=== PATIENT | female | born 1955 | race Caucasian/White ===

== ENCOUNTER 2021-03-08 21:14 | Inpatient (IN) | payer MEDICARE, MEDICAID, SELFPAY ==
[2021-03-08] VITALS (9 sets, daily range): BP systolic 110–139; BP diastolic 81–102; PULSE 17–129; RESP 19–106; TEMP 37.2; O2SAT 94–100; BMI 26.2
--- NOTE | 2021-03-08 21:25 | ED.RN ---
PT ARRIVES VIA [facility]. PT IMMEDIATELY REFUSED CARE, I WANT TO GO TO [place], TELL THEM TO TAKE ME THERE. EMS STATED THAT SHE DID TELL THEM THAT BUT THEY BROUGHT HER HERE D/T THE 12 LEAD IN THE EMS. PT DEMANDED TO BE TAKEN TO [place], REQUESTED TO PHONE TO CALL HER SON TO TAKE HER. PT'S SON REFUSED TO PICK HER UP AND TAKE HER TO [place]. PT AGREES TO BE SEEN AT [facility]. PT APOLOGIZED FOR BEING A PAIN.
--- NOTE | 2021-03-08 21:45 | RAD_ITS ---
EXAM: XR CHEST, 1 VIEW CLINICAL INDICATION: sob TECHNIQUE: Frontal view of the chest. This report was created using [employer] report generation technology. COMPARISON: None. FINDINGS: LUNGS AND PLEURAL SPACES: Diffuse emphysema suggested. Scarring and/or discoid atelectasis involving the lower lungs bilaterally. No pneumothorax. No effusion. HEART: Unremarkable. Cardiac silhouette not enlarged. MEDIASTINUM: Central airways and mediastinal contour are unremarkable. BONES/JOINTS: S-shaped curvature of the spine with multilevel degenerative changes. No unusual lytic or sclerotic lesions of bone. Multiple right rib fracture deformities posterolaterally. SOFT TISSUES: Unremarkable. VASCULATURE: Nonenlarged thoracic aortic arch with atherosclerotic calcifications. RAD/Chest 1 View (Portable) IMPRESSION: No acute cardiopulmonary disease. Electronically Signed: Alpesh Bass MD at 22:44 EST Tel , Service support ,
--- NOTE | 2021-03-08 21:46 | EKG12_ITS ---
Test Reason : DYSRHYTHMIA Blood Pressure : / mmHG Vent. Rate : 095 BPM Atrial Rate : 095 BPM P-R Int : 168 ms QRS Dur : 096 ms QT Int : 336 ms P-R-T Axes : 079 027 063 degrees QTc Int : 422 ms Normal sinus rhythm Normal ECG Confirmed by XENIA LUNA, BETTIE ([id number]), primer expeditor and drier MELANIE SANCHEZ ([id number]) on 03/11/2021 11:47:11 AM Referred By: CROW Confirmed By:BETTIE MICHAELS MD
[2021-03-08] MEDS: Albuterol 2.5 MG/3 ML VIAL.NEB. INHALATION (22:30)
[2021-03-08] MEDS: Ipratropium/Albuterol Sulfate 3 ML AMPUL.NEB INHALATION (22:30)
[2021-03-08 22:39] LABS: Absolute Lymphocyte Count 0.24 X10^3/uL (0.83-4.51); Basophil# 0.02 X10^3/uL; Basophil% 0.3 % (0-1); Eosinophil# 0.08 X10^3/uL; Eosinophils% 1.1 % (0-5); Hematocrit 35.2 % (37-47); Hemoglobin 11.5 g/dL (12.0-15.0); Lymphocyte # 0.24 X10^3/ul (0.83-4.51); Lymphocyte % 3.4 % (19-41); Mean Corp Hgb Conc 32.7 g/dL (32-36); Mean Corpuscular Hgb 30.7 pg (27.0-32.0); Mean Corpuscular Volume 93.9 fL (81-99); Mean Platelet Vol. 8.4 fl (6.2-12.0); Monocyte# 0.69 X10^3/uL; Monocyte% 9.8 % (0-10); NRBC Flagged by Analyzer 0 % (0-5); Neutrophil # 5.97 X10^3/uL (2.7-7.7); POSITIVE DIFFERENTIAL YES; Platelet Count 426 K/mm3 (150-450); RBC Distribution Width CV 12.3 % (11.6-14.6); RBC Distribution Width SD 42.8 fl (35.1-43.9); Red Blood Count 3.75 M/mm3 (4.2-5.4)
[2021-03-08 22:41] LABS: Differential Indicated SCAN CRITERIA MET
[2021-03-08] MEDS: LORazepam 2 MG/ML Syringe 1 MG IV (22:45)
[2021-03-08 22:46] LABS: Anion Gap 4 (5-15); BUN 8 mg/dL (7-18); BUN/Creat Ratio 23.3 RATIO (10-20); Calcium,Total 9.1 mg/dL (8.5-10.1); Chloride 81 mmol/L (98-107); Creatinine, Serum 0.34 mg/dL (0.55-1.02); EST Glomerular Filtration Rate 204 mL/min (>60); Est Glom Filt Rate - Afr Amer 247 mL/min (>60); Estimated Creatinine Clearance 146.25 ml/min; Glucose 104 mg/dL (74-106); Sodium Level 126 mmol/L (136-145)
--- NOTE | 2021-03-08 23:04 | CPS ---
x1 Albuterol given to pt. as well in ER
[2021-03-08 23:05] LABS: Differential Comment SCANNED
[2021-03-08] MEDS: MethylPREDNISolone 125 MG/2 ML Vial IV (23:13)
[2021-03-08 23:31] LABS: Allen Test Positive; Base Excess 19 mmol/L (-2 to +2); Bicarbonate 44.5 mmol/L (22-26); Blood Gas Specimen Type ART; O2 Delivery Device Cannula; PO2 183 mmHG (75-100); SITE R Radial; SO2 99 % (95-99); Total Carbon Dioxide 47 mmol/L; pCO2 83.9 mmHg (35-45); pH 7.33 (7.35-7.45)
[2021-03-08 23:45] LABS: Troponin-I HS 4 pg/mL (3.0-54.0)
[2021-03-08 23:52] LABS: BNP,B-Type NATRIURETIC PEPTIDE 19.3 pg/mL (0-100)
[2021-03-09] VITALS (18 sets, daily range): BP systolic 119–148; BP diastolic 68–99; PULSE 91–125; RESP 12–28; TEMP 36.4–37.1; O2SAT 88–99; BMI 24.5
[2021-03-09] MEDS: Albuterol 2.5 MG/3 ML VIAL.NEB. INHALATION (01:09)
[2021-03-09] MEDS: Ipratropium/Albuterol Sulfate 3 ML AMPUL.NEB INHALATION ×5 (01:09→19:25)
[2021-03-09] MEDS: LORazepam 2 MG/ML Syringe 0.5 MG IV (01:11)
--- NOTE | 2021-03-09 01:47 | HP.PCM.HOS_ITS ---
HPI - General General Date of Admission: 03/09/21 HPI Narrative DEVORA GORMAN, is a 65 F with a significant history of hypertension; former smoker; depression; anxiety and COPD on home oxygen who presents to the emergency department with a 2-week history of progressively worsening shortness of breath. Associated with her symptoms is cough productive for thick sputum. The thickness of her sputum has increased. Patient has wheezes that she thinks is unchanged. Reportedly about a month ago patient was admitted at [facility] for COPD and Covid. On this presentation patient requested that paramedics send her to [facility] but due to the increased work of breathing paramedics told her that she has to come to our hospital. [facility] Medical History Anxiety COPD (chronic obstructive pulmonary disease) Depression Hypertension Hypothyroidism On home oxygen therapy Home Medications albuterol sulfate 2.5 mg INHALATION Q4H PRN 03/08/21 [History Last Taken Unknown] alendronate 70 mg PO SA 03/08/21 [History Last Taken 03/07/21] buspirone 15 mg PO Q6H PRN PRN 03/08/21 [History Last Taken Unknown] citalopram 20 mg PO DAILY 03/08/21 [History Last Taken Unknown] dalfampridine 10 mg PO Q12H 03/08/21 [History Last Taken Unknown] dimethyl fumarate 240 mg PO BID 03/08/21 [History Last Taken Unknown] famotidine 40 mg PO QHS 03/08/21 [History Last Taken Unknown] ferrous sulfate 325 mg PO BID 03/08/21 [History Last Taken Unknown] levothyroxine 100 mcg PO DAILY 03/08/21 [History Last Taken Unknown] oxcarbazepine 300 mg PO TID 03/08/21 [History Last Taken Unknown] oxybutynin chloride 15 mg PO DAILY 03/08/21 [History Last Taken Unknown] roflumilast [Daliresp] 500 mcg PO DAILY 03/08/21 [History Last Taken Unknown] tiotropium bromide [Spiriva with HandiHaler] 1 cap INHALATION DAILY 03/08/21 [History Last Taken Unknown] bupropion HCl 300 mg PO DAILY 03/09/21 [History Last Taken Unknown] calcium carbonate-vitamin D3 [Oyster Shell Calcium-Vit D3] tab PO DAILY 03/09/21 [History Last Taken Unknown] cyanocobalamin (vitamin B-12) 1,500 mcg PO DAILY 03/09/21 [History Last Taken Unknown] folic acid 0.8 mg PO DAILY 03/09/21 [History Last Taken Unknown] lisinopril 20 mg PO DAILY 03/09/21 [History Last Taken Unknown] mirtazapine 45 mg PO QHS 03/09/21 [History Last Taken Unknown] montelukast 10 mg PO QHS 03/09/21 [History Last Taken Unknown] multivitamin z-ycabrhjb-vopub 1 tab PO/SL DAILY 03/09/21 [History Last Taken Unknown] potassium gluconate 595 mg PO DAILY 03/09/21 [History Last Taken Unknown] sodium chloride 1,000 mg PO DAILY 03/09/21 [History Last Taken Unknown] Allergy/AdvReac Type Severity Reaction Status Date / Time amoxicillin Allergy Other Verified 03/08/21 21:17 bupropion [From Wellbutrin] Allergy Other Verified 03/08/21 21:17 clindamycin Allergy Other Verified 03/08/21 21:17 Surgical History H/O tubal ligation Hx of appendectomy Social History Smoking Status: Former smoker ROS ROS Narrative Constitutional: Denies fever or chills. Reports fatigue. Reports anorexia. Denies change in weight. Eyes: Denies blurry vision, change in eye color, change in vision, discharge from eye(s), double vision, erythema, eye pain, loss of vision or other HEENT: Denies abnormal hearing, dysphagia, ear pain, epistaxis, headache(s), hearing loss, nasal congestion, nasal discharge, post nasal drip, sinus pressure, sore throat or other Cardiovascular: Denies chest pain or palpitations. Respiratory/Chest: Reports shortness of breath and productive cough. Reports wheezing that has not changed from baseline. Gastrointestinal: Denies abdominal pain, coffee ground emesis, constipation, diarrhea, dyspepsia, hematemesis, hematochezia, loose stools, melena, nausea, vomiting or other Genitourinary: Denies burning urination, difficulty urinating, dysuria, hematuria, nocturia, urinary frequency, urinary hesitancy, urinary incontinence, urinary urgency or other Musculoskeletal: Denies arthralgias, back pain, joint pain, joint stiffness, joint swelling, myalgias, neck pain or other Neurologic: Denies abnormal gait, abnormal speech, confusion, disequilibrium, dizziness, focal weakness, headache(s), numbness, paresthesias, seizure-like activity, seizures, syncope, tingling, tremor(s) or other Psychiatric: Reports anxiety. Denies homicidal ideation, suicidal ideation or other Endocrinology: Denies change in body appearance, cold intolerance, excessive sweating, heat intolerance, polydipsia, polyuria or other Hematologic/Lymphatic: Denies anemia, easy bleeding, easy bruising, lymphadenopathy or other Integumentary: Denies rashes Allergic/Immunologic: Denies rhinitis, hives, eczema, asthma or other Vital Signs Vital Signs Vital Signs: 03/08/21 21:17 03/08/21 21:21 03/08/21 21:22 Temperature 99 F 99 F Temperature Source Temporal Temporal Pulse Rate 129 H 96 96 Respiratory Rate 35 H 35 H Respiratory Effort Short of Breath Labored Accessory Muscle Use Respiratory Depth Respiratory Pattern Irregular Blood Pressure 110/81 H 110/81 H Blood Pressure Mean 90 90 Pulse Ox 100 100 Oxygen Delivery Method Nasal Cannula Nasal Cannula Oxygen Flow Rate (L/min) 6 6 03/08/21 21:46 03/08/21 21:47 03/08/21 22:21 Temperature 99 F Temperature Source Temporal Pulse Rate 103 H Respiratory Rate 19 H Respiratory Effort Respiratory Depth Respiratory Pattern Blood Pressure 138/102 H Blood Pressure Mean 114 Pulse Ox 97 97 100 Oxygen Delivery Method Nasal Cannula Nasal Cannula Nasal Cannula Oxygen Flow Rate (L/min) 6 6 6 03/08/21 22:30 03/08/21 23:00 03/08/21 23:07 Temperature 99 F Temperature Source Temporal Pulse Rate 103 H 17 L 17 L Respiratory Rate 30 H 106 H 106 H Respiratory Effort Short of Breath Labored Respiratory Depth Shallow Respiratory Pattern Tachypnea Blood Pressure 139/84 H 139/84 H Blood Pressure Mean 102 102 Pulse Ox 94 97 97 Oxygen Delivery Method Nasal Cannula Nasal Cannula Nasal Cannula Oxygen Flow Rate (L/min) 6 6 6 03/09/21 00:45 Temperature 98.8 F Temperature Source Oral Pulse Rate 100 Respiratory Rate 26 H Respiratory Effort Respiratory Depth Respiratory Pattern Blood Pressure 139/68 H Blood Pressure Mean 91 Pulse Ox 97 Oxygen Delivery Method Nasal Cannula Oxygen Flow Rate (L/min) Weight Weight: 69.2 kg Body Mass Index (BMI) 26.2 Physical Exam Narrative Physical exam: General: In acute respiratory distress secondary to increased work of breathing. Head: Normocephalic, atraumatic, no tenderness Eyes: PERRLA, EOMI ENT, no trauma, moist mucous membranes, no rhinorrhea Neck: Nontender, full range of motion, no spinal tenderness, deformities, step-off CVS: Regular rate and rhythm. S1-S2 present. No murmur, gallop or rub. Respiratory : Sitting in tripod position. Tachypnea. Conversational dyspnea. Using accessory muscles of respiration. Diminished with wheezing. Abdomen: Soft, nontender, nondistended, normal bowel sounds, no masses : Deferred Back: Nontender, no CVA tenderness, no midline spinal tenderness, deformities, step-offs Extremities: Nontender full range of motion, no trauma Skin: Normal color, no trauma, abrasions Neuro: Alert, oriented, cranial nerves II through XII grossly intact. Psychiatry: Very anxious. Results Lab / Micro Data Result Diagrams: 03/08/21 22:15 03/08/21 22:15 Labs: Laboratory Results - last 24 hr 03/08/21 22:15: WBC 7.0, RBC 3.75 L, Hgb 11.5 L, Hct 35.2 L, MCV 93.9, MCH 30.7, MCHC 32.7, RDW Std Deviation 42.8, RDW Coeff of Rosaura 12.3, Plt Count 426, MPV 8.4, Immature Gran % (Auto) 0.400, Neut % (Auto) 85.0 H, Lymph % (Auto) 3.4 L, [place] % (Auto) 9.8, Eos % (Auto) 1.1, Baso % (Auto) 0.3, Absolute Neuts (auto) 6.0, Absolute Lymphs (auto) 0.24 L, Nucleated RBC % 0, Differential Comment SCANNED 03/08/21 22:15: Sodium 126 L, Potassium 5.0, Chloride 81 L, Carbon Dioxide 41.0 H, Anion Gap 4 L, BUN 8, Creatinine 0.34 L, Estim Creat Clear Calc 146.25, Est GFR (MDRD) Af Amer 247, Est GFR (MDRD) Non-Af 204, BUN/Creatinine Ratio 23.3 H, Glucose 104, Calcium 9.1 03/08/21 22:15: Magnesium 2.0, Troponin I High Sens 4 03/08/21 22:15: B-Natriuretic Peptide 19.3 ABG Data ABG results: ABG 03/08/21 23:22 Specimen Type ART Sample Site R Radial pH 7.33 L Bicarbonate Actual 44.5 H Total CO2 47 Base Excess 19 H O2 Saturation 99 ABG pCO2 83.9 H* ABG pO2 183 H Hugh Test Positive O2 Delivery Device Cannula Liter Flow 6.0 Crit Call To/Read Back Yes Blood Gas Notified Whom [facility] Radiology Impression Chest X-Ray 03/08/21 21:45 IMPRESSION: No acute cardiopulmonary disease. Electronically Signed: Alpesh Bass MD at 22:44 EST Tel , Service support , Assessment & Plan Assessment/Plan (1) Acute exacerbation of chronic obstructive pulmonary disease: PLAN: Acute on chronic hypercapnic respiratory failure secondary to COPD exacerbation Report that in the past she has been on BiPAP so we will admit her to [facility]. ABG on 6 L showed a pH of 7.33; PCO2 of 33.9. PO2 of 183. Bicarbonate was 44.5. Base excess was 19. Patient oxygen per nasal cannula was reduced. BiPAP ordered. CXR image independently interpreted shows no acute collateral process and agree with alleges interpretation Scheduled DuoNeb Albuterol as needed Solu-Medrol [id number] Levaquin ordered. Monitor BMP and CBC Hyponatremia Review of BMP showed sodium of 126 Of note patient is bupropion that can cause hyponatremia. Also on oxcarbazepine which is notorious for hyponatremia Of note patient is on sodium tablets. No further work-up will be pursued except will trend BMP. We will continue sodium tablets. DVT prophylaxis: Subcutaneous Lovenox ordered Charges/Coding Visit Charges Inpatient E&M: 42831 Init Hosp L3
--- NOTE | 2021-03-09 01:57 | CPS ---
[0109] x1 Albuterol and x1 Duoneb given to pt. in ER. Pt. is extremely anxious, and is stating that she needs to be reminded to breathe through her nose and out of her mouth. Diminished breath sounds with an upper airway wet wheeze.
--- NOTE | 2021-03-09 01:58 | EX.ED.DYSGE1 ---
HPI History of Present Illness Chief Complaint: Shortness of Breath Narrative Narrative: Patient is a 65-year-old female with past medical history of COPD who states she wears 6 L of nasal cannula oxygen 27/09. She states that she was admitted to [facility] roughly 1 month ago for a COPD exacerbation with Covid. She states that today she had developed increased shortness of breath and called EMS. She reports that she asked EMS to take her to [facility] but they said because of her increased work of breathing and had to bring her to the closest facility and therefore bring her to [facility]. 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 The patient denies any chest pain but states that she is also anxious and she is unsure of her shortness of breath is related to her anxiety or her COPD but as she feels like she cannot breathe she presents for evaluation [facility] Medical History Anxiety COPD (chronic obstructive pulmonary disease) Depression Hypertension Hypothyroidism On home oxygen therapy Home Medications albuterol sulfate 2.5 mg INHALATION Q4H PRN 03/08/21 [History Last Taken Unknown] alendronate 70 mg PO QWEEK 03/08/21 [History Last Taken Unknown] buspirone 15 mg PO DAILY 03/08/21 [History Last Taken Unknown] citalopram 20 mg PO DAILY 03/08/21 [History Last Taken Unknown] dalfampridine 10 mg PO Q12H 03/08/21 [History Last Taken Unknown] dimethyl fumarate 240 mg PO BID 03/08/21 [History Last Taken Unknown] famotidine 40 mg PO DAILY 03/08/21 [History Last Taken Unknown] ferrous sulfate 325 mg PO BID 03/08/21 [History Last Taken Unknown] levothyroxine 100 mcg PO DAILY 03/08/21 [History Last Taken Unknown] oxcarbazepine 300 mg PO TID 03/08/21 [History Last Taken Unknown] oxybutynin chloride 15 mg PO DAILY 03/08/21 [History Last Taken Unknown] roflumilast [Daliresp] 500 mcg PO DAILY 03/08/21 [History Last Taken Unknown] tiotropium bromide [Spiriva with HandiHaler] 1 cap INHALATION DAILY 03/08/21 [History Last Taken Unknown] Allergy/AdvReac Type Severity Reaction Status Date / Time amoxicillin Allergy Other Verified 03/08/21 21:17 bupropion [From Wellbutrin] Allergy Other Verified 03/08/21 21:17 clindamycin Allergy Other Verified 03/08/21 21:17 Social History Smoking Status: Former smoker ROS ROS ED Constitutional Constitutional ED: Denies chills or fever(s) ENT ENT ED: Denies rhinorrhea or sore throat Cardiovascular Cardiovascular: Reports racing heartbeat; Denies chest pain Respiratory/Chest Respiratory/Chest: Reports cough, dyspnea and sputum Gastrointestinal Gastrointestinal: Denies abdominal pain, diarrhea, nausea or vomiting Genitourinary Genitourinary ED: Denies dysuria Musculoskeletal Musculoskeletal: Denies myalgias Integumentary Denies rash Neurologic Neurologic: Denies headache(s) Psychiatric Psychiatric: Reports anxiety Hematologic/Lymphatic Hematologic/Lymphatic: Denies easy bleeding or easy bruising EXAM Physical Exam Const Vital Signs: 03/08/21 21:17 03/08/21 21:21 03/08/21 21:22 Temperature 99 F 99 F Temperature Source Temporal Temporal Pulse Rate 129 H 96 96 Respiratory Rate 35 H 35 H Respiratory Effort Short of Breath Labored Accessory Muscle Use Respiratory Depth Respiratory Pattern Irregular Blood Pressure 110/81 H 110/81 H Blood Pressure Mean 90 90 Pulse Ox 100 100 Oxygen Delivery Method Nasal Cannula Nasal Cannula Oxygen Flow Rate (L/min) 6 6 03/08/21 21:46 03/08/21 21:47 03/08/21 22:21 Temperature 99 F Temperature Source Temporal Pulse Rate 103 H Respiratory Rate 19 H Respiratory Effort Respiratory Depth Respiratory Pattern Blood Pressure 138/102 H Blood Pressure Mean 114 Pulse Ox 97 97 100 Oxygen Delivery Method Nasal Cannula Nasal Cannula Nasal Cannula Oxygen Flow Rate (L/min) 6 6 6 03/08/21 22:30 03/08/21 23:00 03/08/21 23:07 Temperature 99 F Temperature Source Temporal Pulse Rate 103 H 17 L 17 L Respiratory Rate 30 H 106 H 106 H Respiratory Effort Short of Breath Labored Respiratory Depth Shallow Respiratory Pattern Tachypnea Blood Pressure 139/84 H 139/84 H Blood Pressure Mean 102 102 Pulse Ox 94 97 97 Oxygen Delivery Method Nasal Cannula Nasal Cannula Nasal Cannula Oxygen Flow Rate (L/min) 6 6 6 03/09/21 00:45 Temperature 98.8 F Temperature Source Oral Pulse Rate 100 Respiratory Rate 26 H Respiratory Effort Respiratory Depth Respiratory Pattern Blood Pressure 139/68 H Blood Pressure Mean 91 Pulse Ox 97 Oxygen Delivery Method Nasal Cannula Oxygen Flow Rate (L/min) Positive well nourished and well developed Constitutional Narrative: Patient is in moderate respiratory distress with tachypnea and accessory muscle use and 1-2 word sentences General Appearance ED: well developed HEENT Reports moist mucous membranes HEENT Narrative: No tongue or lip swelling no oral lesions no airway edema or compromise Eyes PERRL and EOMs intact bilaterally Neck supple and no JVD Chest Wall palpation of chest normal Resp Resp Narrative: Patient is in moderate respiratory distress with tachypnea and accessory muscle use. Breath sounds are diminished throughout with diffuse inspiratory and expiratory wheezes Cardio regular rhythm Rate: other Other Details: Tachycardic rate with regular rhythm radial pulses are plus 2 out of 4 bilaterally GI non-tender and non-distended Auscultation: normoactive bowel sounds Palpation: soft Extremity normal to inspection Extremity Narrative: No asymmetric edema no pitting edema negative Homans' sign bilaterally Neuro oriented x3 and CN's II-XII intact bilaterally Sensorium / Orientation: alert Psych Psych Narrative: Patient has a nervous/anxious affect Attitude: agitated Skin no rashes or lesions noted MDM MDM MDM Narrative Medical decision making narrative: Patient presented to the ER tachypneic and tachycardic with increased work of breathing. Despite this her pulse ox was in the mid 90s on her normal 6 L. Patient was visibly anxious and it was hard to discern whether her anxiety was stimulating her with shortness of breath or vice versa. A basic work-up was obtained which showed hyponatremia but otherwise no clinically significant findings. Patient was initially given Ativan and her work of breathing and anxiety resolved. However the medication wore off after approximately 2 hours and patient's tachypnea and accessory muscle use and 1-2 word dyspnea returned. She was given another dose but there was minimal symptom improvement. Blood gas showed hypercarbia with a PCO2 of 84. Because of her persistent symptoms it is not safe to discharge her home and therefore she'll be placed on BiPAP and admitted to the hospital for further care Lab Data Attestation: I reviewed the patient's lab results. Labs: Laboratory Results - last 24 hr 03/08/21 03/08/21 03/08/21 22:15 22:15 22:15 WBC 7.0 RBC 3.75 L Hgb 11.5 L Hct 35.2 L MCV 93.9 MCH 30.7 MCHC 32.7 RDW Std Deviation 42.8 RDW Coeff of Rosaura 12.3 Plt Count 426 MPV 8.4 Immature Gran % (Auto) 0.400 Neut % (Auto) 85.0 H Lymph % (Auto) 3.4 L [place] % (Auto) 9.8 Eos % (Auto) 1.1 Baso % (Auto) 0.3 Absolute Neuts (auto) 6.0 Absolute Lymphs (auto) 0.24 L Nucleated RBC % 0 Differential Comment SCANNED Sodium 126 L Potassium 5.0 Chloride 81 L Carbon Dioxide 41.0 H Anion Gap 4 L BUN 8 Creatinine 0.34 L Estim Creat Clear Calc 146.25 Est GFR (MDRD) Af Amer 247 Est GFR (MDRD) Non-Af 204 BUN/Creatinine Ratio 23.3 H Glucose 104 Calcium 9.1 Magnesium 2.0 Troponin I High Sens 4 B-Natriuretic Peptide 03/08/21 22:15 WBC RBC Hgb Hct MCV MCH MCHC RDW Std Deviation RDW Coeff of Rosaura Plt Count MPV Immature Gran % (Auto) Neut % (Auto) Lymph % (Auto) [place] % (Auto) Eos % (Auto) Baso % (Auto) Absolute Neuts (auto) Absolute Lymphs (auto) Nucleated RBC % Differential Comment Sodium Potassium Chloride Carbon Dioxide Anion Gap BUN Creatinine Estim Creat Clear Calc Est GFR (MDRD) Af Amer Est GFR (MDRD) Non-Af BUN/Creatinine Ratio Glucose Calcium Magnesium Troponin I High Sens B-Natriuretic Peptide 19.3 ABG Data ABG results: ABG 03/08/21 23:22 Specimen Type ART Sample Site R Radial pH 7.33 L Bicarbonate Actual 44.5 H Total CO2 47 Base Excess 19 H O2 Saturation 99 ABG pCO2 83.9 H* ABG pO2 183 H Hugh Test Positive O2 Delivery Device Cannula Liter Flow 6.0 Crit Call To/Read Back Yes Blood Gas Notified Whom [facility] Radiography Diagnostic Testing: Clinical Impression(s) from Imaging Studies Chest X-Ray 03/08/21 21:45 IMPRESSION: No acute cardiopulmonary disease. Electronically Signed: Alpesh Bass MD at 22:44 EST Tel , Service support , Discharge Plan Dx/Rx/DC Orders Clinical Impression: Acute exacerbation of chronic obstructive pulmonary disease Disposition Disposition: Acute Care Hospital [facility]
[2021-03-09] MEDS: levoFLOXacin IV 750 MG/150 ML BAG 100 MG IV ×2 (03:50→21:39)
--- NOTE | 2021-03-09 04:19 | PCS.PANDOC ---
PANDEMIC DOCUMENTATION INITIATED: Date: 10/20/2020 Time: 190
[2021-03-09 04:26] LABS: Allen Test Positive; Base Excess 18 mmol/L (-2 to +2); Bicarbonate 43.4 mmol/L (22-26); Blood Gas Specimen Type ART; Comment 12/6 12 30%; FI02 30; O2 Delivery Device BiPAP; PEEP 6; PO2 59 mmHG (75-100); RR 12; SITE R Radial; SO2 88 % (95-99); Total Carbon Dioxide 46 mmol/L; pCO2 75.7 mmHg (35-45); pH 7.37 (7.35-7.45)
[2021-03-09] MEDS: guaiFENesin 600 MG Tablet PO ×3 (05:21→21:40)
[2021-03-09] MEDS: OXcarbazepine 300 MG Tablet PO ×3 (05:21→21:42)
[2021-03-09] MEDS: Levothyroxine 100 MCG Tablet PO (05:21)
--- NOTE | 2021-03-09 06:17 | NURSING ---
pt refusing bipap at this time. placed on 4L NC and pt is 94%.
[2021-03-09 06:53] LABS: Absolute Neutrophil Count 8.4 X10^3/uL (2.0-7.7); Hematocrit 29.9 % (37-47); Hemoglobin 9.8 g/dL (12.0-15.0); Lymphocyte % 2.2 % (19-41); Mean Corp Hgb Conc 32.8 g/dL (32-36); Mean Corpuscular Hgb 30.4 pg (27.0-32.0); Mean Corpuscular Volume 92.9 fL (81-99); Mean Platelet Vol. 8.7 fl (6.2-12.0); Monocyte# 0.33 X10^3/uL; Monocyte% 3.7 % (0-10); NRBC Flagged by Analyzer 0 % (0-5); Neutrophil # 8.44 X10^3/uL (2.7-7.7); Neutrophil % 93.4 % (47-70); POSITIVE DIFFERENTIAL YES; Platelet Count 370 K/mm3 (150-450); RBC Distribution Width CV 12.1 % (11.6-14.6); RBC Distribution Width SD 41.7 fl (35.1-43.9); Red Blood Count 3.22 M/mm3 (4.2-5.4)
[2021-03-09 07:00] LABS: Differential Indicated SCAN CRITERIA MET
[2021-03-09 07:10] LABS: Anion Gap 5 (5-15); BUN 7 mg/dL (7-18); BUN/Creat Ratio 22.5 RATIO (10-20); Calcium,Total 8.8 mg/dL (8.5-10.1); Chloride 83 mmol/L (98-107); Creatinine, Serum 0.31 mg/dL (0.55-1.02); EST Glomerular Filtration Rate 228 mL/min (>60); Est Glom Filt Rate - Afr Amer 276 mL/min (>60); Glucose 147 mg/dL (74-106); Potassium 4.6 mmol/L (3.5-5.1); Sodium Level 127 mmol/L (136-145)
[2021-03-09] MEDS: Multivitamins,Ther W-Minerals Tablet 1 TABLET PO (08:01)
[2021-03-09] MEDS: Folic Acid 1 MG Tablet PO (08:01)
[2021-03-09] MEDS: Ferrous Sulfate 325 MG Tablet PO ×2 (08:01→16:44)
--- NOTE | 2021-03-09 09:27 | NURSING ---
PT REFUSING BIPAP. JUST GET IT OFF, IM DONE WITH IT. THIS NURSE TOLD HER THAT HER O2 LEVEL WAS BARELY STAYING AT 89-90% NOW. PT SHE REPLIED I DONT CARE, I WANT IT OFF, TURN MY OXYGEN UP TO 6L THIS NURSE REMINDED HER THAT SHE IS THE ONE WHO CAME TO US FOR HELP AND IF SHE IS NOT GOING TO LET US DO WHAT WE NEED TO HELP HER, SHE MIGHT WELL NOT BE HERE. PT THEN APOLOGIZED
--- NOTE | 2021-03-09 09:31 | PN.HOSP_ITS ---
Subjective Subjective Follow-up on acute COPD exacerbation: Patient was seen and examined. Admitted early in the morning with the above. She is currently on her home 6 L of oxygen. She was on BiPAP overnight. Denied any new complaints. Objective Data Objective Data Vital Signs: Vital Signs Temp Pulse Resp BP Pulse Ox 98.1 F 97 24 H 132/73 H 88 03/09/21 08:00 03/09/21 08:00 03/09/21 08:00 03/09/21 08:00 03/09/21 08:00 Oxygen Flow Rate (L/min) 2 Oxygen Delivery Method Bi-pap Weight: 64.9 kg Body Mass Index (BMI) 24.5 Intake & Output: Intake and Output for Last 24 Hours 03/07/21 03/08/21 03/09/21 23:59 23:59 23:59 Intake Total 150 / 150 Balance 150 / 150 Lab / Micro Data Result Diagrams: 03/09/21 06:04 03/09/21 06:04 Labs: Laboratory Results - last 24 hr 03/08/21 22:15: WBC 7.0, RBC 3.75 L, Hgb 11.5 L, Hct 35.2 L, MCV 93.9, MCH 30.7, MCHC 32.7, RDW Std Deviation 42.8, RDW Coeff of Rosaura 12.3, Plt Count 426, MPV 8.4, Immature Gran % (Auto) 0.400, Neut % (Auto) 85.0 H, Lymph % (Auto) 3.4 L, Fleming % (Auto) 9.8, Eos % (Auto) 1.1, Baso % (Auto) 0.3, Absolute Neuts (auto) 6.0, Absolute Lymphs (auto) 0.24 L, Nucleated RBC % 0, Differential Comment SCANNED 03/08/21 22:15: Sodium 126 L, Potassium 5.0, Chloride 81 L, Carbon Dioxide 41.0 H, Anion Gap 4 L, BUN 8, Creatinine 0.34 L, Estim Creat Clear Calc 146.25, Est GFR (MDRD) Af Amer 247, Est GFR (MDRD) Non-Af 204, BUN/Creatinine Ratio 23.3 H, Glucose 104, Calcium 9.1 03/08/21 22:15: Magnesium 2.0, Troponin I High Sens 4 03/08/21 22:15: B-Natriuretic Peptide 19.3 03/09/21 06:04: WBC 9.0, RBC 3.22 L, Hgb 9.8 L, Hct 29.9 L, MCV 92.9, MCH 30.4, MCHC 32.8, RDW Std Deviation 41.7, RDW Coeff of Rosaura 12.1, Plt Count 370, MPV 8.7, Immature Gran % (Auto) 0.700, Neut % (Auto) 93.4 H, Lymph % (Auto) 2.2 L, Fleming % (Auto) 3.7, Eos % (Auto) 0.0, Baso % (Auto) 0.0, Absolute Neuts (auto) 8.4 H, Absolute Lymphs (auto) 0.20 L, Nucleated RBC % 0 03/09/21 06:04: Sodium 127 L, Potassium 4.6, Chloride 83 L, Carbon Dioxide 39.0 H, Anion Gap 5, BUN 7, Creatinine 0.31 L, Estim Creat Clear Calc 160.40, Est GFR (MDRD) Af Amer 276, Est GFR (MDRD) Non-Af 228, BUN/Creatinine Ratio 22.5 H, Glucose 147 H, Calcium 8.8 Micro: Microbiology 03/09/21 01:43 Nasal Secretion SARS-CoV-2 Antigen (Rapid) - Final ABG Data ABG results: ABG 03/08/21 03/09/21 23:22 04:18 Specimen Type ART ART Sample Site R Radial R Radial pH 7.33 L 7.37 Bicarbonate Actual 44.5 H 43.4 H Total CO2 47 46 Base Excess 19 H 18 H O2 Saturation 99 88 L O2 % 30 ABG pCO2 83.9 H* 75.7 H* ABG pO2 183 H 59 L Hugh Test Positive Positive Respiration Rate 12 O2 Delivery Device Cannula BiPAP Liter Flow 6.0 POC PEEP 6 Crit Call To/Read Back Yes Yes Blood Gas Notified Whom Andes Agyepong Clinical Comments 02/09 12 30% Radiography Diagnostic Testing: Radiology Impression Chest X-Ray 03/08/21 21:45 IMPRESSION: No acute cardiopulmonary disease. Electronically Signed: Alpesh Bass MD at 22:44 EST Tel , Service support , Physical Exam Narrative Physical exam: General: Alert, Oriented x3, Cooperative, No apparent distress, on 6 L of oxygen HEENT: Atraumatic Oral: Moist Mucosa Neck: Supple Lungs:Diminished to auscultation Cardiovascular: HS I+II, regular, no murmurs Abdomen: Bowel Sounds Present, Soft, Non Tender Extremities: No edema Assessment & Plan Assessment/Plan (1) Acute exacerbation of chronic obstructive pulmonary disease: PLAN: 1. Acute on chronic hypercapnic respiratory failure secondary to Acute COPD exacerbation Admitting chest x-ray reveals no acute cardiopulmonary process Rapid COVID-19 antigen test is negative Patient recently admitted to [facility] a month ago with Covid Admitting ABG showed pH of 7.33, PCO2 was 83.9 Patient was managed overnight on BiPAP Continue on IV solumedrol, breathing treatments and Levaquin 2. Hyponatremia, probably chronic Sodium remains at 127; admitted with sodium 126 Continue on sodium tablets 3. Rest of her chronic medical conditions including anxiety/depr ession/osteoporosis/hypertension/vitamin B12 deficiency remained stable Home meds continued
--- NOTE | 2021-03-09 10:22 | CASEMGMT ---
Addendum entered by Susan Del Rio 03/09/21 11:29: TC to [facility], spoke with Tawny who states pt is active with SN, PT and OT. She is aware pt is hospitalized, and they are able to accept back upon dc. Original Note: JEANETTE FARRELL Assessment: Face to Face with pt for initial transition planning/care coordination assessment. JEANETTE FARRELL introduced self and role at [facility], pt voices understanding and consents to assessment. Pt is A/O x4 and answers all questions appropriately at this time. Pt sitting up in bed with O2 on and sob with conversation. Care providers, pharmacy, and demographics verified/updated. Admitting Dx: COPD exac PCP:Adela Specialists:Jyoti neuro; Zeynep uro; Jacinto pulamrit Preferred Pharmacy: [facility] Insurance: [facility] Dual Prescription Benefit: yes LNOK: Myron Massect, son Living Arrangements: Pt lives alone in a single story house with a ramp to enter. Pt reports she can indep wash up herself and dress but if she needs a shower with hair, she needs assistance. Pt denies concerns at home. Transportation: Pt son provides transportation for pt. She denies concerns with this. DME/HHC/SNF: Pt has a medic alert and oxygen through [employer] [facility]. She states she uses 6L continuous and has 2 concentrators to provide this. She also has portable O2 and her son will bring in a portable tank at time of dc. Pt has passport services through [facility]. She receives an aide 4 hours per day, 5 days per week. They assist with cleaning the house, groceries and personal care. Pt also has [facility] for SN and PT currently. She states she has been in [facility] in the past but it has since closed. Pt states she has a passport therapeutic case manager and she believes her name is Lily. Notified SW. Pt states no concerns with going home at time of dc. Pt states no further concerns/needs. CM to follow. Advised pt to ask CM if any further question/concerns/needs arise, voices understanding. Pt Goal: Home Plan: Home with resumption of aides and HHC.
[2021-03-09] MEDS: buPROPion (XL) 300 MG TABLET.XL PO (11:18)
[2021-03-09] MEDS: busPIRone 15 MG TABLET PO ×2 (11:19→18:19)
[2021-03-09] MEDS: Famotidine 20 MG Tablet 40 MG PO (11:19)
[2021-03-09] MEDS: Enoxaparin 40 MG/0.4 ML Syringe SC (11:20)
[2021-03-09] MEDS: Sodium Chloride 1 GM Tablet PO (11:20)
[2021-03-09] MEDS: Citalopram 20 MG Tablet PO (11:20)
[2021-03-09] MEDS: Tolterodine Tartrate 4 MG CAP.SA PO (11:20)
[2021-03-09] MEDS: Cyanocobalamin 500 MCG Tablet 1500 MCG PO (11:21)
[2021-03-09] MEDS: Lisinopril 20 MG Tablet PO (11:21)
[2021-03-09] MEDS: Sodium Chloride 0.65% 1 SPRAY SPRAY.BTL NASAL (13:32)
[2021-03-09] MEDS: LORazepam 1 MG Tablet PO (14:26)
--- NOTE | 2021-03-09 14:31 | CASEMGMT ---
Social Work Note SW updated that pt has PASSPORT CM Lily through [facility]. SW placed a call to the [facility] that provides service to [place]. Pt's CM is Lily Law. SW transferred to Lily and left message updating her that pt is currently at [facility]. Luisana Jefferson INDUSTRIAL ORGANIZATION MANAGER, COUNTY COURT JUDGE
--- NOTE | 2021-03-09 14:38 | NURSING ---
buspirone ordered as pt takes at home
[2021-03-09] MEDS: Mirtazapine 15 MG Tablet 45 MG PO (21:40)
[2021-03-09] MEDS: Montelukast 10 MG Tablet PO (21:42)
[2021-03-10] VITALS (8 sets, daily range): BP systolic 130–169; BP diastolic 68–91; PULSE 89–100; RESP 18–26; TEMP 36.6–37.7; O2SAT 92–98
[2021-03-10] MEDS: Levothyroxine 100 MCG Tablet PO (05:12)
[2021-03-10] MEDS: 0.9% Saline Lock 10 ML Syringe IV ×3 (05:12→20:26)
[2021-03-10] MEDS: busPIRone 15 MG TABLET PO ×3 (05:12→20:26)
[2021-03-10] MEDS: Sodium Chloride 0.65% 1 SPRAY SPRAY.BTL NASAL (05:12)
[2021-03-10] MEDS: OXcarbazepine 300 MG Tablet PO ×3 (05:12→20:26)
[2021-03-10] MEDS: Ipratropium/Albuterol Sulfate 3 ML AMPUL.NEB INHALATION ×4 (06:35→18:42)
[2021-03-10 06:40] LABS: Absolute Lymphocyte Count 0.67 X10^3/uL (0.83-4.51); Absolute Neutrophil Count 6.1 X10^3/uL (2.0-7.7); Basophil# 0.01 X10^3/uL; Basophil% 0.1 % (0-1); Eosinophil# 0.01 X10^3/uL; Eosinophils% 0.1 % (0-5); Hematocrit 30.4 % (37-47); Hemoglobin 10.1 g/dL (12.0-15.0); Lymphocyte # 0.67 X10^3/ul (0.83-4.51); Mean Corp Hgb Conc 33.2 g/dL (32-36); Mean Corpuscular Hgb 30.7 pg (27.0-32.0); Mean Corpuscular Volume 92.4 fL (81-99); Mean Platelet Vol. 8.3 fl (6.2-12.0); Monocyte# 0.63 X10^3/uL; Monocyte% 8.5 % (0-10); NRBC Flagged by Analyzer 0 % (0-5); Neutrophil # 6.05 X10^3/uL (2.7-7.7); Neutrophil % 81.8 % (47-70); Platelet Count 385 K/mm3 (150-450); RBC Distribution Width CV 12.1 % (11.6-14.6); RBC Distribution Width SD 41.3 fl (35.1-43.9); Red Blood Count 3.29 M/mm3 (4.2-5.4); White Blood Count 7.4 K/mm3 (4.4-11.0)
[2021-03-10 07:06] LABS: AST(SGOT) 13 U/L (15-37); Alanine Aminotransfer ALT/SGPT 25 U/L (13-56); Alkaline Phosphatase 50 U/L (45-117); Anion Gap 5 (5-15); BUN 4 mg/dL (7-18); Calcium,Total 8.7 mg/dL (8.5-10.1); Chloride 80 mmol/L (98-107); Creatinine, Serum 0.22 mg/dL (0.55-1.02); EST Glomerular Filtration Rate 337 mL/min (>60); Est Glom Filt Rate - Afr Amer 408 mL/min (>60); Estimated Creatinine Clearance 226.02 ml/min; Globulin 3.1 g/dL (2.2-4.2); Glucose 101 mg/dL (74-106); Potassium 4.1 mmol/L (3.5-5.1); Protein, Total 6.1 g/dL (6.4-8.2); Sodium Level 125 mmol/L (136-145)
[2021-03-10] MEDS: Multivitamins,Ther W-Minerals Tablet 1 TABLET PO (07:48)
[2021-03-10] MEDS: Ferrous Sulfate 325 MG Tablet PO ×2 (07:48→17:24)
[2021-03-10] MEDS: Folic Acid 1 MG Tablet PO (07:48)
--- NOTE | 2021-03-10 09:19 | NURSING ---
PT REQUESTING ANXIETY MEDS. NOT DUE UNTIL 11. ATTEMPTED TO CALL ROOM TO NOTIFY PT, NO ANSWER
[2021-03-10] MEDS: Tolterodine Tartrate 4 MG CAP.SA PO (11:28)
[2021-03-10] MEDS: Citalopram 20 MG Tablet PO (11:28)
[2021-03-10] MEDS: Enoxaparin 40 MG/0.4 ML Syringe SC (11:28)
[2021-03-10] MEDS: Famotidine 20 MG Tablet 40 MG PO (11:29)
[2021-03-10] MEDS: guaiFENesin 600 MG Tablet PO ×2 (11:29→20:27)
[2021-03-10] MEDS: Cyanocobalamin 500 MCG Tablet 1500 MCG PO (11:29)
[2021-03-10] MEDS: Sodium Chloride 1 GM Tablet PO (11:29)
[2021-03-10] MEDS: Lisinopril 20 MG Tablet PO (11:30)
[2021-03-10] MEDS: buPROPion (XL) 300 MG TABLET.XL PO (11:30)
--- NOTE | 2021-03-10 12:10 | PCM.DC ---
Discharge Instructions Diet Discharge Diet: 2000 mg Sodium Diet Activity Discharge Activity: Return to Normal Activity Follow Up Care Test Results: Test results from this visit will be discussed in further detail at your follow-up appointment, if applicable. Discharge Plan Admission Admit Date/Time: 03/09/21 01:38 Primary Reason for Your Visit: Acute COPD exacerbation Attending Provider: Sol Ying Primary Care Provider: Victor Hugo Chapman Instructions Additional Instructions / Restrictions: You are being discharged with oxygen. Continue to use your oxygen all the time. Continue to use your incentive spirometer. Continue to remain active and eat healthy.Be careful of going near open flames whilst on oxygen. Complete your prednisone taper as prescribed. Follow-up with pulmonology and your primary care doctor to have your oxygen reevaluated. Discharge Orders/Prescriptions Prescriptions: New prednisone 10 mg tablet See Taper mg PO DAILY Qty: 30 RF: 0 levofloxacin 500 mg tablet 500 mg PO DAILY Qty: 3 RF: 0 Continued oxybutynin chloride 15 mg Tablet Extended Release 24hr 15 mg PO DAILY RF: 0 albuterol sulfate 2.5 mg /3 mL (0.083 %) Solution For Nebulization 2.5 mg INHALATION Q4H PRN (Reason: COPD) RF: 0 famotidine 40 mg Tablet 40 mg PO QHS RF: 0 alendronate 70 mg Tablet 70 mg PO SA RF: 0 oxcarbazepine 300 mg Tablet 300 mg PO TID RF: 0 levothyroxine 100 mcg Tablet 100 mcg PO DAILY RF: 0 citalopram 20 mg Tablet 20 mg PO DAILY RF: 0 ferrous sulfate 325 mg (65 mg iron) Tablet 325 mg PO BID RF: 0 buspirone 15 mg Tablet 15 mg PO Q6H PRN PRN (Reason: Anxiety) RF: 0 Spiriva with HandiHaler 18 mcg Capsule, W/Inhalation Device 1 cap INHALATION DAILY RF: 0 dalfampridine 10 mg Tablet Extended Release 12 Hr 10 mg PO Q12H RF: 0 Daliresp 500 mcg Tablet 500 mcg PO DAILY RF: 0 dimethyl fumarate 240 mg Capsule,Delayed Release(Dr/Ec) 240 mg PO BID RF: 0 lisinopril 20 mg tablet 20 mg PO DAILY RF: 0 sodium chloride 1 gram Tablet 1,000 mg PO DAILY RF: 0 cyanocobalamin (vitamin B-12) 1,500 mcg Tablet Extended Release 1,500 mcg PO DAILY RF: 0 mirtazapine 45 mg Tablet 45 mg PO QHS RF: 0 montelukast 10 mg Tablet 10 mg PO QHS RF: 0 folic acid 800 mcg Tablet 0.8 mg PO DAILY RF: 0 bupropion HCl 300 mg Tablet Extended Release 24 Hr 300 mg PO DAILY RF: 0 calcium carbonate-vitamin D3 [Oyster Shell Calcium-Vit D3] 500 mg-5 mcg (200 unit) Tablet PO DAILY RF: 0 potassium gluconate 595 mg (99 mg) Tablet 595 mg PO DAILY RF: 0 multivitamin d-erivwgev-gtndc 1 tab PO/SL DAILY RF: 0 Referrals / Follow Up: Victor Hugo Chapman MD [Primary Care Provider] - Disposition Disposition (needs filled in before D/C Order can be placed): Home Health Service
--- NOTE | 2021-03-10 12:19 | DS.PCM_ITS ---
Providers Date of Admission: 03/09/21 Date of Discharge: 03/12/21 Primary Care Physician: Dr. Victor Hugo Chapman MD Reason For Visit: COPD EXACERBATION Diagnosis Discharge Diagnosis (1) Acute exacerbation of chronic obstructive pulmonary disease: Status: Acute Code(s): J44.1 - Chronic obstructive pulmonary disease with (acute) exacerbation (2) Hyponatremia: Status: Chronic Code(s): E87.1 - Hypo-osmolality and hyponatremia (3) Acute respiratory failure: Status: Acute Code(s): J96.00 - Acute respiratory failure, unspecified whether with hypoxia or hypercapnia (4) COPD with acute exacerbation: Status: Chronic Code(s): J44.1 - Chronic obstructive pulmonary disease with (acute) exacerbation Medications at Discharge Home Medications Daliresp 500 mcg PO DAILY 03/08/21 Spiriva with HandiHaler 1 cap INHALATION DAILY 03/08/21 albuterol sulfate 2.5 mg INHALATION Q4H PRN 03/08/21 alendronate 70 mg PO SA 03/08/21 buspirone 15 mg PO Q6H PRN PRN 03/08/21 citalopram 20 mg PO DAILY 03/08/21 dalfampridine 10 mg PO Q12H 03/08/21 dimethyl fumarate 240 mg PO BID 03/08/21 famotidine 40 mg PO QHS 03/08/21 ferrous sulfate 325 mg PO BID 03/08/21 levothyroxine 100 mcg PO DAILY 03/08/21 oxcarbazepine 300 mg PO TID 03/08/21 oxybutynin chloride 15 mg PO DAILY 03/08/21 bupropion HCl 300 mg PO DAILY 03/09/21 calcium carbonate-vitamin D3 [Oyster Shell Calcium-Vit D3] tab PO DAILY 03/09/21 cyanocobalamin (vitamin B-12) 1,500 mcg PO DAILY 03/09/21 folic acid 0.8 mg PO DAILY 03/09/21 lisinopril 20 mg PO DAILY 03/09/21 mirtazapine 45 mg PO QHS 03/09/21 montelukast 10 mg PO QHS 03/09/21 multivitamin j-ekankoge-lsgaj 1 tab PO/SL DAILY 03/09/21 potassium gluconate 595 mg PO DAILY 03/09/21 sodium chloride 1,000 mg PO DAILY 03/09/21 prednisone See Taper PO DAILY #30 tab 03/10/21 food supplemt, lactose-reduced [Ensure Compact] 118 ml PO TIDCM #0 ml 03/12/21 guaifenesin [Mucus Relief ER] 600 mg PO BID PRN #0 tab 03/12/21 levofloxacin 500 mg PO DAILY 1 Days #1 tab 03/12/21 Hospital Course Operations None Procedures None Summary of Care Provided Minutes Spent on Discharge: 45 Hospital Course: 65-year-old female with past medical history of chronic resp iratory failure secondary to COPD who comes in with a 2-week history of progressive shortness of breath and cough. Patient's admitting ABG showed pH 7.33, pCo2 83.9, pO2 183. Patient was admitted to the [facility] floor and managed as acute on chronic respiratory failure secondary to acute COPD exacerbation. He was managed on breathing treatment, IV Solu-Medrol and Levaquin. Patient was also managed on BiPAP. She was seen by PT and OT and skilled for discharge to fpc facility. She was discharged on prednisone taper and 1 more day of Levaquin to complete 5 days. She was also asked to use BiPAP for sleep and for naps. She will need to follow-up with pulmonology in the outpatient at discharge. Physical Exam Narrative Physical exam: General: Alert, Oriented x3, Cooperative, No apparent distress, on 4 L of oxygen HEENT: Atraumatic Oral: Moist Mucosa Neck: Supple Lungs:Diminished to auscultation Cardiovascular: HS I+II, regular, no murmurs Abdomen: Bowel Sounds Present, Soft, Non Tender Extremities: No edema Weight / BMI Weight Weight: 64.9 kg Body Mass Index (BMI) 24.5 ABG / Lab / Microbiology Data Result Diagrams: 03/12/21 15:00 03/12/21 15:00 Laboratory: Laboratory Results - last 24 hr 03/10/21 06:15: WBC 7.4, RBC 3.29 L, Hgb 10.1 L, Hct 30.4 L, MCV 92.4, MCH 30.7, MCHC 33.2, RDW Std Deviation 41.3, RDW Coeff of Rosaura 12.1, Plt Count 385, MPV 8.3, Immature Gran % (Auto) 0.500, Neut % (Auto) 81.8 H, Lymph % (Auto) 9.0 L, [place] % (Auto) 8.5, Eos % (Auto) 0.1, Baso % (Auto) 0.1, Absolute Neuts (auto) 6.1, Absolute Lymphs (auto) 0.67 L, Nucleated RBC % 0 03/10/21 06:15: Sodium 125 L, Potassium 4.1, Chloride 80 L, Carbon Dioxide 40.0 H, Anion Gap 5, BUN 4 L, Creatinine 0.22 L, Estim Creat Clear Calc 226.02, Est G FR (MDRD) Af Amer 408, Est GFR (MDRD) Non-Af 337, BUN/Creatinine Ratio 18.0, Glucose 101, Calcium 8.7, Total Bilirubin 0.30, AST 13 L, ALT 25, Alkaline Phosphatase 50, Total Protein 6.1 L, Albumin 3.0 L, Globulin 3.1, Albumin/Globu aimee Ratio 1.0 Microbiology: Microbiology 03/09/21 01:43 Nasal Secretion SARS-CoV-2 Antigen (Rapid) - Final D/C Instructions Discharge Diet: 2000 mg Sodium Diet Meaningful Use Info Meaningful Use Diagnoses (Choose all that apply): None applicable Discharge Plan Admission Admit Date/Time: 03/09/21 01:38 Primary Reason for Your Visit: Acute COPD exacerbation Attending Provider: Sol Ying Primary Care Provider: Victor Hugo Chapman Discharge Orders/Prescriptions Prescriptions: New prednisone 10 mg tablet See Taper mg PO DAILY Qty: 30 RF: 0 Ensure Compact Liquid 118 ml PO TIDCM Qty: 0 RF: 0 guaifenesin [Mucus Relief ER] 600 mg Tablet Extended Release 12hr 600 mg PO BID PRN (Reason: Cough) Qty: 0 RF: 0 levofloxacin 500 mg tablet 500 mg PO DAILY 1 Days Qty: 1 RF: 0 Continued oxybutynin chloride 15 mg Tablet Extended Release 24hr 15 mg PO DAILY RF: 0 albuterol sulfate 2.5 mg /3 mL (0.083 %) Solution For Nebulization 2.5 mg INHALATION Q4H PRN (Reason: COPD) RF: 0 famotidine 40 mg Tablet 40 mg PO QHS RF: 0 alendronate 70 mg Tablet 70 mg PO SA RF: 0 oxcarbazepine 300 mg Tablet 300 mg PO TID RF: 0 levothyroxine 100 mcg Tablet 100 mcg PO DAILY RF: 0 citalopram 20 mg Tablet 20 mg PO DAILY RF: 0 ferrous sulfate 325 mg (65 mg iron) Tablet 325 mg PO BID RF: 0 buspirone 15 mg Tablet 15 mg PO Q6H PRN PRN (Reason: Anxiety) RF: 0 Spiriva with HandiHaler 18 mcg Capsule, W/Inhalation Device 1 cap INHALATION DAILY RF: 0 dalfampridine 10 mg Tablet Extended Release 12 Hr 10 mg PO Q12H RF: 0 Daliresp 500 mcg Tablet 500 mcg PO DAILY RF: 0 dimethyl fumarate 240 mg Capsule,Delayed Release(Dr/Ec) 240 mg PO BID RF: 0 lisinopril 20 mg tablet 20 mg PO DAILY RF: 0 sodium chloride 1 gram Tablet 1,000 mg PO DAILY RF: 0 cyanocobalamin (vitamin B-12) 1,500 mcg Tablet Extended Release 1,500 mcg PO DAILY RF: 0 mirtazapine 45 mg Tablet 45 mg PO QHS RF: 0 montelukast 10 mg Tablet 10 mg PO QHS RF: 0 folic acid 800 mcg Tablet 0.8 mg PO DAILY RF: 0 bupropion HCl 300 mg Tablet Extended Release 24 Hr 300 mg PO DAILY RF: 0 calcium carbonate-vitamin D3 [Oyster Shell Calcium-Vit D3] 500 mg-5 mcg (200 unit) Tablet PO DAILY RF: 0 potassium gluconate 595 mg (99 mg) Tablet 595 mg PO DAILY RF: 0 multivitamin b-unnvntkn-vpjco 1 tab PO/SL DAILY RF: 0 Referrals / Follow Up: Victor Hugo Chapman MD [Primary Care Provider] - Within 2 Weeks Disposition Disposition (needs filled in before D/C Order can be placed): Detention Fa cility Charges/Coding Visit Charges Inpatient E&M: 10041 Disch Hosp
--- NOTE | 2021-03-10 12:49 | PN.HOSP_ITS ---
Subjective Subjective Follow-up on acute COPD exacerbation: Patient was seen and examined. No acute events overnight. She has been refu sing her BiPAP. Denied any new complaints. Objective Data Objective Data Vital Signs: Vital Signs Temp Pulse Resp BP Pulse Ox 98.8 F 99 18 166/91 H 93 03/10/21 12:06 03/10/21 12:06 03/10/21 12:06 03/10/21 12:06 03/10/21 12:06 Oxygen Flow Rate (L/min) 4 Oxygen Delivery Method Nasal Cannula Weight: 64.9 kg Body Mass Index (BMI) 24.5 Intake & Output: Intake and Output for Last 24 Hours 03/08/21 03/09/21 03/10/21 23:59 23:59 23:59 Intake Total 300 / 300 Output Total 150 / 150 Balance 300 / 300 -150 / -150 Lab / Micro Data Result Diagrams: 03/10/21 06:15 03/10/21 06:15 Labs: Laboratory Results - last 24 hr 03/10/21 06:15: WBC 7.4, RBC 3.29 L, Hgb 10.1 L, Hct 30.4 L, MCV 92.4, MCH 30.7, MCHC 33.2, RDW Std Deviation 41.3, RDW Coeff of Rosaura 12.1, Plt Count 385, MPV 8.3, Immature Gran % (Auto) 0.500, Neut % (Auto) 81.8 H, Lymph % (Auto) 9.0 L, [place] % (Auto) 8.5, Eos % (Auto) 0.1, Baso % (Auto) 0.1, Absolute Neuts (auto) 6.1, Absolute Lymphs (auto) 0.67 L, Nucleated RBC % 0 03/10/21 06:15: Sodium 125 L, Potassium 4.1, Chloride 80 L, Carbon Dioxide 40.0 H, Anion Gap 5, BUN 4 L, Creatinine 0.22 L, Estim Creat Clear Calc 226.02, Est GFR (MDRD) Af Amer 408, Est GFR (MDRD) Non-Af 337, BUN/Creatinine Ratio 18.0, Glucose 101, Calcium 8.7, Total Bilirubin 0.30, AST 13 L, ALT 25, Alkaline Phosphatase 50, Total Protein 6.1 L, Albumin 3.0 L, Globulin 3.1, Albumin/Globulin Ratio 1.0 Micro: Microbiology 03/09/21 01:43 Nasal Secretion SARS-CoV-2 Antigen (Rapid) - Final Physical Exam Narrative Physical exam: General: Alert, Oriented x3, Cooperative, No apparent distress, on 4 L of oxygen HEENT: Atraumatic Oral: Moist Mucosa Neck: Supple Lungs:Diminished to auscultation Cardiovascular: HS I+II, regular, no murmurs Abdomen: Bowel Sounds Present, Soft, Non Tender Extremities: No edema Assessment & Plan Assessment/Plan (1) Acute exacerbation of chronic obstructive pulmonary disease: PLAN: 1. Acute on chronic hypercapnic respiratory failure secondary to acute COPD exacerbation, slightly improved Admitting chest x-ray reveals no acute cardiopulmonary process Rapid COVID-19 antigen test is negative Patient recently admitted to [facility] a month ago with Covid Admitting ABG showed pH of 7.33, PCO2 was 83.9 Continue on IV solumedrol, breathing treatments and Levaquin Continue to encourage use of BiPAP 2. Hyponatremia, probably chronic Sodium remains at 125; admitted with sodium 126 Continue on sodium tablets 3. Rest of her chronic medical conditions including anxie ty/depression/osteoporosis/hypertension/vitamin B12 deficiency remained stable Home meds continued Charges/Coding Visit Charges Inpatient E&M: 19559 Subs Hosp L2
--- NOTE | 2021-03-10 13:09 | CASEMGMT ---
TC to [facility], verified that pt O2 rx is 6L cont.
[2021-03-10] MEDS: Montelukast 10 MG Tablet PO (20:26)
[2021-03-10] MEDS: Mirtazapine 15 MG Tablet 45 MG PO (20:26)
[2021-03-10] MEDS: levoFLOXacin IV 750 MG/150 ML BAG 100 MG IV (20:26)
[2021-03-11] VITALS (12 sets, daily range): BP systolic 106–154; BP diastolic 70–72; PULSE 85–103; RESP 14–25; TEMP 36.6–37.1; O2SAT 93–99
[2021-03-11] MEDS: 0.9% Saline Lock 10 ML Syringe IV ×2 (05:30→14:59)
[2021-03-11] MEDS: Levothyroxine 100 MCG Tablet PO (05:30)
[2021-03-11] MEDS: OXcarbazepine 300 MG Tablet PO ×3 (05:32→21:10)
[2021-03-11] MEDS: Ipratropium/Albuterol Sulfate 3 ML AMPUL.NEB INHALATION ×4 (07:39→19:16)
[2021-03-11] MEDS: Lisinopril 20 MG Tablet PO (07:57)
[2021-03-11] MEDS: Multivitamins,Ther W-Minerals Tablet 1 TABLET PO (07:57)
[2021-03-11] MEDS: Ferrous Sulfate 325 MG Tablet PO ×2 (07:57→17:09)
[2021-03-11] MEDS: Folic Acid 1 MG Tablet PO (07:58)
[2021-03-11] MEDS: Citalopram 20 MG Tablet PO (07:58)
--- NOTE | 2021-03-11 10:25 | CASEMGMT ---
Addendum entered by Susan Del Rio 03/11/21 15:32: Faxed therapy notes to Jessi at [facility]. Addendum entered by Susan Del Rio 03/11/21 14:39: TC to [facility] to check on status of referral. Jessi will call with acceptance yet today. Addendum entered by Susan Del Rio 03/11/21 12:25: JEANETTE FARRELL in to pt room. Pt aware Yohana is an AL. Patient was provided a list of [facility] providers including quality and resource use data and consistent with the patient?s preferred geographic region, medical needs, and insurance network. Pt requests list for [place], then provided her with this. Pt states she has no preference of facility as long as it is in [place]. TC to [facility] and [facility], they do not have bed availability. TC to [facility], they do have availability and faxed referral to Jessi. She will call this JEANETTE FARRELL back with acceptance. Original Note: JEANETTE FARRELL in to pt room to discuss dc planning. Pt laying in bed. She states she feels that she cannot go home even though she has services set up. Pt states she has been to [facility] but they are closed. She asks if she can go to [facility] in [place]. Made her aware JEANETTE FARRELL will be back with a local in network list of SNF's. Pt agreeable.
[2021-03-11] MEDS: buPROPion (XL) 300 MG TABLET.XL PO (11:22)
[2021-03-11] MEDS: Sodium Chloride 1 GM Tablet PO (11:22)
[2021-03-11] MEDS: Cyanocobalamin 500 MCG Tablet 1500 MCG PO (11:22)
[2021-03-11] MEDS: Famotidine 20 MG Tablet 40 MG PO (11:22)
[2021-03-11] MEDS: Tolterodine Tartrate 4 MG CAP.SA PO (11:23)
[2021-03-11] MEDS: guaiFENesin 600 MG Tablet PO ×2 (11:23→21:10)
[2021-03-11] MEDS: Enoxaparin 40 MG/0.4 ML Syringe SC (11:23)
[2021-03-11] MEDS: busPIRone 15 MG TABLET PO ×3 (11:23→23:10)
--- NOTE | 2021-03-11 14:41 | PN.HOSP_ITS ---
Subjective Subjective Follow-up on acute COPD exacerbation: Patient was seen and examined. No acute events overnight. She was able to t olerate about 15 minutes on her BiPAP. Objective Data Objective Data Vital Signs: Vital Signs Temp Pulse Resp BP Pulse Ox 98.8 F 96 18 152/70 H 98 03/11/21 07:55 03/11/21 13:51 03/11/21 13:51 03/11/21 07:55 03/11/21 13:51 Oxygen Flow Rate (L/min) 4 Oxygen Delivery Method Nasal Cannula Weight: 64.9 kg Body Mass Index (BMI) 24.5 Intake & Output: Intake and Output for Last 24 Hours 03/09/21 03/10/21 03/11/21 23:59 23:59 23:59 Intake Total 300 / 300 150 / 150 Output Total 150 / 150 1800 / 1800 Balance 300 / 300 0 / 0 -1800 / -1800 Lab / Micro Data Result Diagrams: 03/10/21 06:15 03/10/21 06:15 Micro: Microbiology 03/09/21 01:43 Nasal Secretion SARS-CoV-2 Antigen (Rapid) - Final Physical Exam Narrative Physical exam: General: Alert, Oriented x3, Cooperative, No apparent distress, on 4 L of oxygen HEENT: Atraumatic Oral: Moist Mucosa Neck: Supple Lungs:Diminished to auscultation Cardiovascular: HS I+II, regular, no murmurs Abdomen: Bowel Sounds Present, Soft, Non Tender Extremities: No edema Assessment & Plan Assessment/Plan (1) Acute exacerbation of chronic obstructive pulmonary disease: PLAN: 1. Acute on chronic hypercapnic respiratory failure secondary to acute COPD exacerbation, slightly improved Admitting chest x-ray reveals no acute cardiopulmonary process On 4L oxygen now. Patient appears to be at baseline oxygen but she easily gets dyspneic with exertion. Rapid COVID-19 antigen test is negative Patient recently admitted to [facility] a month ago with Covid Admitting ABG showed pH of 7.33, PCO2 was 83.9 Continue on IV solumedrol, breathing treatments and Levaquin Continue to encourage use of BiPAP 2. Hyponatremia, probably chronic Sodium remains at 125; admitted with sodium 126 Continue on sodium tablets 3. Rest of her chronic medical conditions including anxiety/depr ession/osteoporosis/hypertension/vitamin B12 deficiency remained stable. Home meds continued Charges/Coding Visit Charges Inpatient E&M: 11225 Subs Hosp L2
[2021-03-11 18:16] LABS: Bedside Glucose 195 mg/dL (70-110)
[2021-03-11] MEDS: levoFLOXacin IV 750 MG/150 ML BAG 100 MG IV (21:07)
[2021-03-11] MEDS: Mirtazapine 15 MG Tablet 45 MG PO (21:10)
[2021-03-11] MEDS: Montelukast 10 MG Tablet PO (21:10)
[2021-03-12] VITALS (9 sets, daily range): BP systolic 103–148; BP diastolic 59–72; PULSE 78–101; RESP 14–24; TEMP 36.6–37.3; O2SAT 94–100
[2021-03-12] MEDS: Levothyroxine 100 MCG Tablet PO (05:59)
[2021-03-12] MEDS: OXcarbazepine 300 MG Tablet PO ×2 (05:59→14:48)
[2021-03-12] MEDS: 0.9% Saline Lock 10 ML Syringe IV (05:59)
[2021-03-12] MEDS: Ipratropium/Albuterol Sulfate 3 ML AMPUL.NEB INHALATION ×2 (07:09→11:49)
[2021-03-12] MEDS: guaiFENesin 600 MG Tablet PO (08:41)
[2021-03-12] MEDS: Cyanocobalamin 500 MCG Tablet 1500 MCG PO (08:41)
[2021-03-12] MEDS: Enoxaparin 40 MG/0.4 ML Syringe SC (08:41)
[2021-03-12] MEDS: Famotidine 20 MG Tablet 40 MG PO (08:42)
[2021-03-12] MEDS: Tolterodine Tartrate 4 MG CAP.SA PO (08:42)
[2021-03-12] MEDS: Citalopram 20 MG Tablet PO (08:42)
[2021-03-12] MEDS: Folic Acid 1 MG Tablet PO (08:42)
[2021-03-12] MEDS: Ferrous Sulfate 325 MG Tablet PO (08:42)
[2021-03-12] MEDS: Multivitamins,Ther W-Minerals Tablet 1 TABLET PO (08:42)
[2021-03-12] MEDS: Sodium Chloride 1 GM Tablet PO (08:42)
[2021-03-12] MEDS: buPROPion (XL) 300 MG TABLET.XL PO (08:42)
[2021-03-12] MEDS: Lisinopril 20 MG Tablet PO (08:42)
[2021-03-12] MEDS: Albuterol 2.5 MG/3 ML VIAL.NEB. INHALATION (09:16)
--- NOTE | 2021-03-12 11:49 | CASEMGMT ---
Addendum entered by Domitila Groves 03/12/21 16:05: Social Work Pt is going to [facility], convalescent stay, skilled level of care. JILLIAN Mota Addendum entered by Domitila Groves 03/12/21 16:00: Social Work SW also did leave a message for pt's case picker, Lily Regalados, letting her know pt is going to [facility] today. JILLIAN Mtoa Addendum entered by Domitila Groves 03/12/21 15:56: Social Work Pt is ready for discharge today. STANLEY faxed over hospital exemption, COVID test, discharge instructions to [facility]. SW set up an ambulance w/Physicians for 4:30pm. SW let pt, pt's son in room, Linda at [facility], and pt's bedside nurse know time. Also, SW spoke w/son, he will bring pt's Bipap to the care home this evening, [facility] is aware. No further needs, pt to [facility] today. JILLIAN Mota Original Note: Social Work SW spoke w/Jessi at [facility]. Pt can go today, precert is waived. SW let pt know, she is agreeable. SW texted physician to let her know. STANLEY will follow up w/discharge to [facility] once paperwork and COVID test are completed. JILLIAN Mota
--- NOTE | 2021-03-12 12:24 | PCM.TXEXTCAR ---
Diet 03/09/21 09:31 Diet: Regular - General Food consistency:: Soft & Bite Sized Is pt able to select menu?: Yes Routine Orders/Code Status O2 Liters per Minute: 4 O2 Frequency: Continuous Keep PO Greater than or Equal to (%): 92 Routine Lab Work: CBC (within 3 days) and BMP (within 3 days) Code Status: Full Code Therapies Weight Bearing: Weight bearing as tolerated Physical Therapy: Eval and Treat Occupational Therapy: Eval and Treat Problem/Diagnosis (1) Acute exacerbation of chronic obstructive pulmonary disease: Status: Chronic Allergies/Procedures Done in Hospital Allergies amoxicillin Allergy (Verified 03/08/21 21:17) Other clindamycin Allergy (Verified 03/08/21 21:17) Other Procedures: None Type of Care/Length of Stay Estimated LOS: Convalescent Care Less Than 30 days Type of Care Needed: Skilled Rehab Potential: Good Prognosis: Good Additional Orders/Day of Discharge Day of Discharge: 03/12/21 Discharge Plan Admission Admit Date/Time: 03/09/21 01:38 Primary Reason for Your Visit: Acute COPD exacerbation Attending Provider: Sol Ying Primary Care Provider: Victor Hugo Chapman Discharge Orders/Prescriptions Prescriptions: New prednisone 10 mg tablet See Taper mg PO DAILY Qty: 30 RF: 0 levofloxacin 500 mg tablet 500 mg PO DAILY Qty: 3 RF: 0 Ensure Compact Liquid 118 ml PO TIDCM Qty: 0 RF: 0 guaifenesin [Mucus Relief ER] 600 mg Tablet Extended Release 12hr 600 mg PO BID PRN (Reason: Cough) Qty: 0 RF: 0 Continued oxybutynin chloride 15 mg Tablet Extended Release 24hr 15 mg PO DAILY RF: 0 albuterol sulfate 2.5 mg /3 mL (0.083 %) Solution For Nebulization 2.5 mg INHALATION Q4H PRN (Reason: COPD) RF: 0 famotidine 40 mg Tablet 40 mg PO QHS RF: 0 alendronate 70 mg Tablet 70 mg PO SA RF: 0 oxcarbazepine 300 mg Tablet 300 mg PO TID RF: 0 levothyroxine 100 mcg Tablet 100 mcg PO DAILY RF: 0 citalopram 20 mg Tablet 20 mg PO DAILY RF: 0 ferrous sulfate 325 mg (65 mg iron) Tablet 325 mg PO BID RF: 0 buspirone 15 mg Tablet 15 mg PO Q6H PRN PRN (Reason: Anxiety) RF: 0 Spiriva with HandiHaler 18 mcg Capsule, W/Inhalation Device 1 cap INHALATION DAILY RF: 0 dalfampridine 10 mg Tablet Extended Release 12 Hr 10 mg PO Q12H RF: 0 Daliresp 500 mcg Tablet 500 mcg PO DAILY RF: 0 dimethyl fumarate 240 mg Capsule,Delayed Release(Dr/Ec) 240 mg PO BID RF: 0 lisinopril 20 mg tablet 20 mg PO DAILY RF: 0 sodium chloride 1 gram Tablet 1,000 mg PO DAILY RF: 0 cyanocobalamin (vitamin B-12) 1,500 mcg Tablet Extended Release 1,500 mcg PO DAILY RF: 0 mirtazapine 45 mg Tablet 45 mg PO QHS RF: 0 montelukast 10 mg Tablet 10 mg PO QHS RF: 0 folic acid 800 mcg Tablet 0.8 mg PO DAILY RF: 0 bupropion HCl 300 mg Tablet Extended Release 24 Hr 300 mg PO DAILY RF: 0 calcium carbonate-vitamin D3 [Oyster Shell Calcium-Vit D3] 500 mg-5 mcg (200 unit) Tablet PO DAILY RF: 0 potassium gluconate 595 mg (99 mg) Tablet 595 mg PO DAILY RF: 0 multivitamin [id number] 1 tab PO/SL DAILY RF: 0 Referrals / Follow Up: Victor Hugo Chapman MD [Primary Care Provider] - Disposition Disposition (needs filled in before D/C Order can be placed): Home Health Service
[2021-03-12 15:11] LABS: Absolute Lymphocyte Count 0.89 X10^3/uL (0.83-4.51); Absolute Neutrophil Count 8.2 X10^3/uL (2.0-7.7); Basophil# 0.02 X10^3/uL; Basophil% 0.2 % (0-1); Eosinophil# 0.02 X10^3/uL; Eosinophils% 0.2 % (0-5); Hemoglobin 11.3 g/dL (12.0-15.0); Lymphocyte # 0.89 X10^3/ul (0.83-4.51); Lymphocyte % 8.6 % (19-41); Mean Corp Hgb Conc 33.2 g/dL (32-36); Mean Corpuscular Hgb 30.7 pg (27.0-32.0); Mean Corpuscular Volume 92.4 fL (81-99); Monocyte# 1.14 X10^3/uL; NRBC Flagged by Analyzer 0 % (0-5); Neutrophil # 8.23 X10^3/uL (2.7-7.7); Neutrophil % 79.1 % (47-70); Platelet Count 457 K/mm3 (150-450); RBC Distribution Width CV 12.5 % (11.6-14.6); RBC Distribution Width SD 42.6 fl (35.1-43.9); Red Blood Count 3.68 M/mm3 (4.2-5.4); White Blood Count 10.4 K/mm3 (4.4-11.0)
[2021-03-12 15:25] LABS: Allen Test Positive; Base Excess 13 mmol/L (-2 to +2); Bicarbonate 37.7 mmol/L (22-26); Blood Gas Specimen Type ART; O2 Delivery Device Cannula; PO2 71 mmHG (75-100); SITE R Radial; SO2 93 % (95-99); Total Carbon Dioxide 40 mmol/L; pCO2 61.2 mmHg (35-45)
[2021-03-12 15:36] LABS: AST(SGOT) 15 U/L (15-37); Alanine Aminotransfer ALT/SGPT 37 U/L (13-56); Albumin, Serum 3.1 g/dL (3.2-5.0); Alkaline Phosphatase 49 U/L (45-117); Anion Gap 7 (5-15); BUN 11 mg/dL (7-18); BUN/Creat Ratio 28.8 RATIO (10-20); Calcium,Total 8.5 mg/dL (8.5-10.1); Chloride 79 mmol/L (98-107); Creatinine, Serum 0.38 mg/dL (0.55-1.02); EST Glomerular Filtration Rate 180 mL/min (>60); Est Glom Filt Rate - Afr Amer 218 mL/min (>60); Estimated Creatinine Clearance 130.85 ml/min; Globulin 3.2 g/dL (2.2-4.2); Glucose 86 mg/dL (74-106); Potassium 4.1 mmol/L (3.5-5.1); Protein, Total 6.3 g/dL (6.4-8.2); Sodium Level 125 mmol/L (136-145)
--- NOTE | 2021-03-12 16:36 | NURSING ---
Report called to [facility] in [place].
== END 2021-03-12 17:00 | disposition skilled nursing facility (03) | DRG 190 ==
LOC: ED 03-09 01:59 → MS3 03-09 02:16
PROVIDERS: Admitting Provider Hospitalist; Emergency Provider Emergency Medicine; PCP Internal Medicine; Visit Provider Internal Medicine
DX: J44.1 Chronic obstructive pulmonary disease with (acute) exacerbation (principal); J96.22 Acute and chronic respiratory failure with hypercapnia; E87.1 Hypo-osmolality and hyponatremia; Z99.81 Dependence on supplemental oxygen; I10 Essential (primary) hypertension; E53.8 Deficiency of other specified B group vitamins; F41.9 Anxiety disorder, unspecified; E03.9 Hypothyroidism, unspecified; Z87.891 Personal history of nicotine dependence; Z86.16 Personal history of COVID-19; F32.A Depression, unspecified; M81.0 Age-related osteoporosis without current pathological fracture
CPT/HCPCS: 36415; 36600; 71045; 80048; 80053; 82803; 82962; 83735; 83880; 84484; 85025; 87426; 93005; 94002; 94003; 94640; 94667; 94668; 94760; 94762; 97110; 97162; 97166; 97535; 99251; 99285; A4216; G0463

== ENCOUNTER → 2023-11-24 | Outpatient (CLI) | payer MEDICARE, MEDICAID, SELFPAY ==
[2023-11-24 17:58] LABS: Absolute Lymphocyte Count 0.27 X10^3/uL (0.83-4.51); Absolute Neutrophil Count 13.4 X10^3/uL (2.0-7.7); Basophil# 0.02 X10^3/uL; Basophil% 0.1 % (0-1); Eosinophil# 0.01 X10^3/uL; Eosinophils% 0.1 % (0-5); Hematocrit 36.6 % (37-47); Hemoglobin 12.4 g/dL (12.0-15.0); Lymphocyte # 0.27 X10^3/ul (0.83-4.51); Lymphocyte % 1.9 % (19-41); Mean Corp Hgb Conc 33.9 g/dL (32-36); Mean Corpuscular Hgb 30.8 pg (27.0-32.0); Mean Platelet Vol. 8.9 fl (6.2-12.0); Monocyte% 1.4 % (0-10); NRBC Flagged by Analyzer 0 % (0-5); Neutrophil # 13.37 X10^3/uL (2.7-7.7); Neutrophil % 96.1 % (47-70); POSITIVE DIFFERENTIAL YES; Platelet Count 372 K/mm3 (150-450); RBC Distribution Width CV 12.6 % (11.6-14.6); RBC Distribution Width SD 41.5 fl (35.1-43.9); Red Blood Count 4.02 M/mm3 (4.2-5.4); White Blood Count 13.9 K/mm3 (4.4-11.0)
[2023-11-24 18:04] LABS: ALB/GLOB Ratio 1.1 RATIO (0.9-2.4); AST(SGOT) 8 U/L (15-37); Alanine Aminotransfer ALT/SGPT 18 U/L (13-56); Albumin, Serum 3.4 g/dL (3.2-5.0); Alkaline Phosphatase 70 U/L (45-117); Anion Gap 4 (5-15); BUN 7 mg/dL (7-18); BUN/Creat Ratio 23.4 RATIO (10-20); Calcium,Total 9.3 mg/dL (8.5-10.1); Chloride 87 mmol/L (98-107); EST Glomerular Filtration Rate 237 mL/min (>60); Est Glom Filt Rate - Afr Amer 287 mL/min (>60); Glucose 144 mg/dL (74-106); Potassium 4.1 mmol/L (3.5-5.1); Protein, Total 6.4 g/dL (6.4-8.2); Sodium Level 126 mmol/L (136-145)
== END | disposition home or self-care (01) ==
PROVIDERS: PCP Internal Medicine; Referring Provider Psychiatry & Neurology Neurology; Visit Provider Psychiatry & Neurology Neurology
DX: G35 Multiple sclerosis (principal)
CPT/HCPCS: 36415; 80053; 85025